=== PATIENT | male | born 1960 | race Caucasian/White ===

== ENCOUNTER 2021-02-15 16:45 | Emergency (ER) | payer BC ==
[2021-02-15] MEDS ORDERED: BUPIVACAINE 0.5% PF 10 ML VIAL SUBQ STA (17:15)
[2021-02-15] MEDS ORDERED: lidocaine 1% 20 ML MDV SUBQ ONE (17:15)
--- NOTE | 2021-02-15 17:17 | ED Physician Documentation ---
PD HPI UPPER EXT INJURY - Stated complaint Stated Complaint: RT MIDDLE FINGER INJ - Chief complaint Chief Complaint: Laceration - History obtained from History obtained from: Patient - History of Present Illness Location: Right, Finger (middle) Where injury occurred: Street Timing - onset: Today Timing - details: Abrupt onset, Still present Improved by: Rest, Immobilization Worsened by: Moving, Palpating Associated symptoms: No: Weakness, Numbness, Tingling, Swelling Contributing factors: No: Anticoagulated Similar symptoms before: Diagnosis (laceration) Recently seen: Not recently seen - Additonal information Additional information: 60-year-old male who has slammed his middle finger in a car door presents to the emergency department for repair of lacerations. He is able to flex and extend the finger has normal sensation distally and is able to control bleeding with direct pressure. Review of Systems Constitutional: denies: Fever Respiratory: denies: Cough GI: denies: Vomiting, Diarrhea Skin: reports: Laceration (s) PD PAST MEDICAL HISTORY - Present Medications Home Medications: Ambulatory Orders Medication Instructions Recorded Confirmed No Known Home Medications 02/15/21 02/15/21 - Allergies Allergies/Adverse Reactions: Allergies Allergy/AdvReac Type Severity Reaction Status Date / Time No Known Drug Allergies Allergy Verified 02/15/21 17:00 PD ED PE NORMAL - Vitals Vital signs reviewed: Yes (hypertensive ) - General General: Alert and oriented X 3, No acute distress, Well developed/nourished - HEENT HEENT: Atraumatic, PERRL, EOMI - Respiratory Respiratory: No respiratory distress - Derm Derm: Normal color, Warm and dry, No rash - Extremities Extremities: No deformity, No edema, Other (There are two lacerations one to the dorsal surface 4cm and one to the volar surface 2cm both overlying the middle phlange no FB. distal n/v intact. ) - Neuro Neuro: Alert and oriented X 3, hose suspender cutter 2-12 intact, No motor deficit, No sensory deficit, Normal speech Eye Opening: Spontaneous Motor: Obeys Commands Verbal: Oriented GCS Score: 15 - Psych Psych: Normal mood, Normal affect Results - Vitals Vitals: Vital Signs - 24 hr 02/15/21 02/15/21 16:56 18:17 Temperature 36.0 C L 36.5 C Heart Rate 83 83 Respiratory 16 16 Rate Blood Pressure 159/96 H 140/80 H O2 Saturation 96 98 Oxygen O2 Source Room air - Rads (name of study) fingers R Radiology: Prelim report reviewed (Impression: No displaced fracture can be seen.), EMP read indepedently, See rad report Procedures - Laceration (location) right middle finger Length in cm: 6 Wound type: Curved, Flap, Into subcut fat, Clean, Other (exposed fascia) Neurovascular status: Sensory intact, Motor intact, Vascular intact Tendon involvement: Tendon intact Anesthesia: Lidocaine 1%, Marcaine 0.5%, Other (digital block) Wound preparation: Hibiclens, Irrigated copiously NS, Wound explored, To the base Skin layer closure: Nylon, Interrupted, Size #-0 - enter number (4-0), Sutures - enter # (total of 13, 4 to volar and 9 to dorsal.) Other: Patient tolerated well, No complications, Neurovascular intact, Dressing applied, Tetanus booster given PD MEDICAL DECISION MAKING - ED course Complexity details: reviewed results, re-evaluated patient, considered differential, d/w patient ED course: finger caught in door with lacerations repaired no evidence of fracture. Departure - Departure Disposition: 01 Home, Self Care Clinical Impression: Laceration of right middle finger Qualifiers: Encounter type: initial encounter Damage to nail status: without damage Foreign body presence: without foreign body Qualified Code(s): S61.212A - Laceration without foreign body of right middle finger without damage to nail, initial encounter Condition: Stable Instructions: ED Laceration Hand Follow-Up: Your, doctor [Other] Comments: Yamil, you will need to have these sutures removed in 10 to 14 days.
--- NOTE | 2021-02-15 17:39 | XRAY Report ---
PROCEDURE: Finger(s) RT INDICATIONS: middle finger middle phlange contusion TECHNIQUE: AP hand, 2 views of the third finger(s) acquired. COMPARISON: None FINDINGS: Bones: No fractures or dislocations. No suspicious bony lesions. Soft tissues: No suspicious soft tissue calcifications. IMPRESSION: No displaced fracture can be seen. Reviewed by: Sky Souza MD on 02/15/2021 4:38 PM [facility] Approved by: Sky Souza MD on 02/15/2021 4:38 PM [facility] Station ID: [id number]
[2021-02-15] MEDS ORDERED: TETANUS/DIPHTHERIA/PERTUSSIS 0.5 ML SYRINGE IM ONE (17:53)
[2021-02-15 18:18] VITALS: BP 140/80
== END 2021-02-15 18:17 | disposition home or self-care (01) ==
LOC: ED 16:45
DX: S61.212A Laceration without foreign body of right middle finger without damage to nail, initial encounter (principal); W23.0XXA Caught, crushed, jammed, or pinched between moving objects, initial encounter; Y92.410 Unspecified street and highway as the place of occurrence of the external cause; Z23 Encounter for immunization
CPT/HCPCS: 12002; 90471; 99283